=== PATIENT | male | born 1950 | race Caucasian/White ===

== ENCOUNTER 2017-04-30 09:00 | Outpatient (RCR) | payer MEDICARE, BC | END 2017-04-30 14:30 | disposition home or self-care (01) | LOC: PT 09:00 | DX: S39.012D Strain of muscle, fascia and tendon of lower back, subsequent encounter (principal); T14.8XXD Other injury of unspecified body region, subsequent encounter ==

== ENCOUNTER → 2020-12-28 | Outpatient (CLI) | payer MEDICARE, BC | LOC: RAD 14:34 | DX: S83.241A Other tear of medial meniscus, current injury, right knee, initial encounter (principal); M94.261 Chondromalacia, right knee; M67.961 Unspecified disorder of synovium and tendon, right lower leg; M71.21 Synovial cyst of popliteal space [Baker], right knee ==

== ENCOUNTER → 2024-04-13 | Outpatient (CLI) | payer MEDICARE, BC | LOC: RAD 11:10 | DX: M47.26 Other spondylosis with radiculopathy, lumbar region (principal); M16.12 Unilateral primary osteoarthritis, left hip ==